=== PATIENT | male | born 1965 | race Caucasian/White ===

== ENCOUNTER → 2023-06-20 | Outpatient (CLI) | payer MEDICARE, OTHER ==
[~2023-06-20] MED LIST: ARIP15TA27 PO; DIVA-85 PO; DIVA500T53 PO; FLUO-177 PO; LEVO75TA4 PO; OXYB5TAB20 PO; SIMV-260 PO
== END | disposition home or self-care (01) ==
LOC: RADMN 11:29
PROVIDERS: ATTEND Physician Assistant
DX: M19.011 Primary osteoarthritis, right shoulder (principal); M41.84 Other forms of scoliosis, thoracic region; M47.814 Spondylosis without myelopathy or radiculopathy, thoracic region
CPT/HCPCS: 72072; 73010-TC